=== PATIENT | female | born 1950 | race Caucasian/White ===

== ENCOUNTER 2016-08-21 20:54 | Emergency (ER) | payer BC ==
[2016-08-21 21:47] VITALS: BP 138/68
--- NOTE | 2016-08-21 21:50 | ED ---
Skin Complaint - HPI Summary HPI Summary: Patient presents to ED with abrasion over medial lower leg after falling and scraping it on a rock a few hours ago. She denies numbness or tingling. She is a diabetic and wanted to get it checked out to see if she needed sutures or abx. She lost her toe a few months ago d/t osteomyelitis. She states she heals well otherwise. She has had multiple surgeries, but denies other health problems. [place] from out [place] town and has traveled recently here, but denies calf pain or chest pain or SOB. - History of Current Complaint Chief Complaint: EDLacSutureRecheck Time Seen by Provider: 08/21/16 21:15 Stated Complaint: FALL, LEFT LEG LACERATION Hx Obtained From: Patient Onset/Duration: Started Hours Ago Skin Exposure Onset/Duration: Hours Ago Timing: Constant Onset Severity: Moderate Current Severity: Moderate Pain Intensity: 7 Pain Scale Used: 0-10 Numeric Skin Location: Leg Character: Pain, Redness Aggravating Symptom(s): Nothing Alleviating Symptom(s): Nothing Related History: Trauma - Allergy/Home Medications Allergies/Adverse Reactions: Allergies Allergy/AdvReac Type Severity Reaction Status Date / Time Shellfish Allergy Allergy Eyes Verified 08/21/16 21:23 Itchy/Swollen/Red/Watery PMH/Surg Hx/FS Hx/Imm Hx Previously Healthy: Yes - Immunization History Hx Pertussis Vaccination: No Immunizations Up to Date: Unable to Obtain/Confirm Infectious Disease History: No Infectious Disease History: Denies: Traveled Outside the [place] in Last 30 Days - Social History Occupation: Unemployed Lives: With Family Alcohol Use: None Hx Substance Use: No Substance Use Type: Reports: None Hx Tobacco Use: No Smoking Status (MU): Never Smoked Tobacco Review of Systems Constitutional: Negative Eyes: Negative Cardiovascular: Negative Respiratory: Negative Positive: no symptoms reported, see HPI Musculoskeletal: Negative Positive: Rash Positive: Headache All Other Systems Reviewed And Are Negative: Yes Physical Exam Triage Information Reviewed: Yes Vital Signs On Initial Exam: Initial Vitals Temp Pulse Resp BP Pulse Ox 97.4 F 86 18 157/72 97 08/21/16 20:59 08/21/16 20:59 08/21/16 20:59 08/21/16 20:59 08/21/16 20:59 Vital Signs Reviewed: Yes Appearance: Positive: Well-Appearing, Well-Nourished Skin: Positive: Warm, Skin Color Reflects Adequate Perfusion, Other - 10X3 cm abrasion to the medial left lower leg without laceration. Contaminated. Dirt surrounding area. Head/Face: Positive: Normal Head/Face Inspection Eyes: Positive: SHERIN, Conjunctiva Clear Neck: Positive: Supple, No Lymphadenopathy Respiratory/Lung Sounds: Positive: Clear to Auscultation, Breath Sounds Present Cardiovascular: Positive: Normal, RRR, Pulses are Symmetrical in both Upper and Lower Extremities Musculoskeletal: Positive: Normal, Strength/ROM Intact Neurological: Positive: Alert, Oriented to Person Place, Time, Speech Normal Psychiatric: Positive: Normal AVPU Assessment: Alert Diagnostics - Vital Signs Vital Signs Temp Pulse Resp BP Pulse Ox 08/21/16 20:59 97.4 F 86 18 157/72 97 - Laboratory Lab Statement: Any lab studies that have been ordered have been reviewed, and results considered in the medical decision making process. Course/Dx - Course Course Of Treatment: Patient arrives to ED s/p fall and scraped leg on a rock. Patient is a diabetic. 10X3 cm abrasion to the medial left lower leg without laceration or punctures. Contaminated. Dirt surrounding area. Wound cleansed and dressed. No abx needed. Tetanus UTD. - Differential Diagnoses - Skin Complaint Differential Diagnoses: Other - abrasion, avulsion, laceration - Diagnoses Provider Diagnoses: Abrasion of leg Discharge - Discharge Plan Condition: Stable Disposition: HOME Patient Education Materials: Abrasion (ED) Referrals: Non Staff,Doctor [Primary Care Provider] - Additional Instructions: Continue with antibiotic ointment and wrap with gauze or bandage for at least 2 days, then leave open to air Shower with soap and water as normal. If you develop any signs of infection such as drainage from the area, redness, streaking red up or down the leg or you develop a fever, come back to ED immediately.
== END 2016-08-21 21:46 | disposition home or self-care (01) ==
LOC: ED 20:54
DX: S80.812A Abrasion, left lower leg, initial encounter (principal); R21 Rash and other nonspecific skin eruption; R51 Headache; W19.XXXA Unspecified fall, initial encounter; Y93.9 Activity, unspecified; Y92.9 Unspecified place or not applicable
CPT/HCPCS: 99282